=== PATIENT | female | born 1990 | race Caucasian/White ===

== ENCOUNTER 2016-07-02 09:57 | Emergency (ER) | payer MEDICAID ==
[2016-07-02 10:27] VITALS: BP 103/68
[2016-07-02] MEDS ORDERED: Sodium Chloride 0.9% 10 ML Syringe FLUSH PRN (10:36)
[2016-07-02] MEDS ORDERED: Sodium Chloride 0.9% 1,000 ML IV ONE (10:36)
--- NOTE | 2016-07-02 10:41 | EDM.PDOC ---
<Darline Gaines - Last Filed: 07/02/16 11:27> ED HISTORY OF PRESENT ILLNESS - General Chief Complaint: Respiratory Problem Stated Complaint: UPPER RESPIRATORY Time Seen by Provider: 07/02/16 10:33 Source of Information: Reports: Patient History Limitations: Reports: No limitations - History of Present Illness INITIAL COMMENTS - FREE TEXT/NARRATIVE: Patient presents to the ER with c/o cough and chest congestion beginning about 4 days ago. She states she is coughing up green sputum. She denies fever, chills , sob, n/v/d. She admits to feeling weak and tired out. Symptom Onset Date: 06/28/16 Timing/Duration: Reports: Getting worse Severity: moderate Location, General: Reports: chest Quality: Reports: Dull Improves with: Reports: None Worsens with: Reports: None - Related Data Allergies/ADRs: Allergies Allergy/AdvReac Type Severity Reaction Status Date / Time amoxicillin Allergy Diarrhea Verified 02/05/16 09:59 Home Meds: Home Meds . 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: Musculoskeletal History: Reports: None Neurological History: Reports: None Psychiatric History: Reports: None Endocrine/Metabolic History: Reports: None Hematologic History: Reports: None Immunologic History: Reports: None Oncologic (Cancer) History: Reports: None Dermatologic History: Reports: None - Past Surgical History Female Surgical History: Reports: Tubal ligation Social & Family History - Family History Family Medical History: Noncontributory - Tobacco Use Smoking Status *Q: Current Every Day Smoker Years of Tobacco use: 10 Packs/Tins Daily: 0.5 Used Tobacco, but Quit: No Second Hand Smoke Exposure: Yes - Caffeine Use Caffeine Use: Reports: Coffee, Soda - Alcohol Use Days Per Week of Alcohol Use: 0 Number of Drinks Per Day: 2 Total Drinks Per Week: 0 - Recreational Drug Use Recreational Drug Use: No - Sexual History Sexual History: Reports: Sexually active - Living Situation & Occupation Living situation: Reports: Occupation: employed ED ROS GENERAL - Review of Systems Review Of Systems: ROS reveals no pertinent complaints other than HPI. ED EXAM, GENERAL - Physical Exam Exam: See Below Exam Limited By: No limitations General Appearance: alert, WD/WN, no apparent distress Eye Exam: bilateral eye: normal inspection Ears: normal external exam, normal canal, hearing grossly normal, normal TMs Ear Exam: bilateral ear: auricle normal, canal normal, TM normal Nose: normal inspection, normal mucosa, no blood Throat/Mouth: Normal inspection, Normal lips, Normal teeth, Normal gums, Other ( oropharnyx erythematous without exudate) Head: atraumatic, normocephalic Neck: normal inspection, supple, non-tender, full range of motion Respiratory/Chest: no respiratory distress, lungs clear, normal breath sounds, no accessory muscle use. No: chest non-tender Cardiovascular: normal peripheral pulses, regular rate, rhythm, no edema, no gallop, no JVD, no murmur, no rub Peripheral Pulses: 2+: radial (L), radial (R) GI/Abdominal: normal bowel sounds, soft, non tender, no organomegaly, no distention, no abnormal bruit, no mass (Female) Exam: Deferred Rectal (Female) Exam: Deferred Back Exam: normal inspection, full range of motion, NT Extremities: normal inspection, normal range of motion, non-tender, normal capillary refill, no pedal edema Neurological: alert, oriented, CN II-XII intact, normal cognition, normal gait, normal reflexes, no motor/sensory deficits Psychiatric: normal affect, normal mood Skin Exam: Warm, Dry, Intact, Normal color, No rash Lymphatic: no adenopathy Course - Vital Signs Last Recorded V/S: Last Vital Signs Temp 37.7 C 07/02/16 10:03 Pulse 111 H 07/02/16 10:03 Resp 16 07/02/16 10:03 BP 103/68 07/02/16 10:03 Pulse Ox 99 07/02/16 10:03 - Orders/Labs/Meds Orders: Active Orders 24 hr Category Date Time Status Peripheral IV Care [RC] . DIRECTED Care 07/02/16 10:36 Active CULTURE STREP A CONFIRMATION [RM] Stat Lab 07/02/16 10:10 Results HCG QUALITATIVE,URINE [URCHEM] Stat Lab 07/02/16 10:36 Uncollected STREP SCRN A RAPID W CULT CONF [RM] Stat Lab 07/02/16 10:10 Results UA W/MICROSCOPIC [URIN] Stat Lab 07/02/16 10:36 Uncollected Sodium Chloride 0.9% [Normal Saline] 1,000 ml Med 07/02/16 10:36 Active IV .BOLUS Sodium Chloride 0.9% [Saline Flush] Med 07/02/16 10:36 Active 10 ml FLUSH ASDIRECTED PRN Peripheral IV Insertion Adult [OM.PC] Stat Oth 07/02/16 10:36 Ordered Medication Orders Sodium Chloride (Normal Saline) 1,000 mls @ 999 mls/hr IV .BOLUS ONE Stop: 07/02/16 11:36 Last Admin: 07/02/16 11:05 Dose: 999 mls/hr Sodium Chloride (Saline Flush) 10 ml FLUSH ASDIRECTED PRN PRN Reason: Keep Vein Open Last Admin: 07/02/16 11:02 Dose: 10 ml Labs: Laboratory Tests 07/02/16 07/02/16 Range/Units 10:45 10:45 WBC 6.5 (5.0-10.0) 10^3/uL RBC 4.76 (4.2-5.4) 10^6/uL Hgb 15.0 (12.0-16.0) g/dL Hct 43.8 (37.0-47.0) % MCV 92.0 (80-100) fL MCH 31.5 (27.0-34.0) pg MCHC 34.2 (33.0-35.0) g/dL Plt Count 221 (150-450) 10^3/uL Neut % (Auto) 67.4 (42.2-75.2) % Lymph % (Auto) 18.6 L (20.5-50.1) % R[place]y % (Auto) 11.0 H (2-8) % Eos % (Auto) 2.5 (1.0-3.0) % Baso % (Auto) 0.5 (0.0-1.0) % Sodium 135 (135-145) mmol/L Potassium 3.9 (3.6-5.0) mmol/L Chloride 104 (101-111) mmol/L Carbon Dioxide 26.0 (21.0-31.0) mmol/L Anion Gap 8.9 BUN 10 (7-18) mg/dL Creatinine 0.8 (0.6-1.3) mg/dL Est Cr Clr Drug Dosing TNP Estimated GFR (MDRD) > 60 BUN/Creatinine Ratio 12.50 Glucose 69 L (74-105) mg/dL Calcium 8.9 (8.4-10.2) mg/dl Total Bilirubin 0.3 (0.2-1.0) mg/dL AST 47 H (10-42) IU/L ALT 45 (10-60) IU/L Alkaline Phosphatase 33 L (42-121) IU/L Total Protein 7.6 (6.7-8.2) g/dl Albumin 4.4 (3.2-5.5) g/dl Globulin 3.2 Albumin/Globulin Ratio 1.38 Meds: Medications Generic Name Dose Route Start Last Admin Trade Name Freq PRN Reason Stop Dose Admin Sodium Chloride 1,000 mls @ 999 mls/hr 07/02/16 10:36 07/02/16 11:05 Normal Saline IV 07/02/16 11:36 999 mls/hr .BOLUS ONE Administration Sodium Chloride 10 ml 07/02/16 10:36 07/02/16 11:02 Saline Flush FLUSH 10 ml ASDIRECTED PRN Administration Keep Vein Open - Radiology Interpretation Free Text/Narrative:: CXR: Bronchitis. No lobar pneumonia. See Rad report. Departure - Departure Time of Disposition: 11:18 Disposition: Home, Self-Care 01 Preliminary Cause of *Q: sepsis & multi system organ failure Condition: good Clinical Impression: Upper respiratory infection Qualifiers: URI type: unspecified viral URI Qualified Code(s): J06.9 - Acute upper respiratory infection, unspecified Acute bronchitis Qualifiers: Bronchitis organism: unspecified organism Qualified Code(s): J20.9 - Acute bronchitis, unspecified Instructions: Acute Bronchitis, [id number], Upper Respiratory Infection, Adult, [id number]-[id number] Forms: ED Department Discharge Additional Instructions: Prednisone 40mg orally daily with meals for 5 days Tessalon Perles 100mg, 1-2 caps orally every 8 hours as needed for cough. Follow up with Primary care provider next week. - My Orders Last 24 Hours: My Active Orders 07/02/16 10:10 CULTURE STREP A CONFIRMATION [] Stat STREP SCRN A RAPID W CULT CONF [RM] Stat - Assessment/Plan Last 24 Hours: My Active Orders 07/02/16 10:10 CULTURE STREP A CONFIRMATION [RM] Stat STREP SCRN A RAPID W CULT CONF [RM] Stat <Luis Manuel Swanson - Last Filed: 07/02/16 11:33> Course - Re-Assessments/Exams Free Text/Narrative Re-Assessment/Exam: 07/02/16 11:33 FOR THIS ENCOUNTER THE PATIENT WAS SEEN IN CONJUNCTION WITH [facility] STUDENT DARLINE GAINES. ALL PATIENT CARE AND/OR PROCEDURE(S), DIAGNOSTIC ORDERS, MEDICATION(S) AND TREATMENT ORDERS, DISPOSITION ORDERS/PLANNING, AND DISCHARGE/FOLLOW UP INSTRUCTIONS WERE UNDER MY DIRECT SUPERVISION. wanda
[2016-07-02 11:11] LABS: CHLORIDE,CL 104 mmol/L (101-111); SODIUM,NA 135 mmol/L (135-145)
--- NOTE | 2016-07-02 11:21 | CR ---
Clinical history: 26-year-old female cough. Interpretation: Coarse accentuation of the central lung markings with mild air trapping typical of reactive airway disease (bronchitis). Normal cardiac silhouette and bony thorax. No alveolar edema or dependent effusion. No lung mass, hilar lymphadenopathy or focal lobar pneumonia. No atelectasis/collapse. No pneumothorax. CONCLUSION: Bronchitis. No lobar pneumonia.
== END 2016-07-02 12:12 | disposition home or self-care (01) ==
LOC: DL.ED 09:57
DX: J06.9 Acute upper respiratory infection, unspecified (principal); J20.9 Acute bronchitis, unspecified; F17.210 Nicotine dependence, cigarettes, uncomplicated; Z88.1 Allergy status to other antibiotic agents
CPT/HCPCS: 36415; 71020; 80053; 85025; 87081; 87430; 87804; 96360; 99283; J7030; J7050

== ENCOUNTER 2017-11-06 17:23 | Emergency (ER) | payer MEDICAID ==
[2017-11-06 18:01] VITALS: BP 126/89
--- NOTE | 2017-11-06 18:01 | EDM.PDOC ---
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 Pt admits to being "moderately intoxicated". She denies head or neck injury. Tetanus vaccine is up to date per pt. Onset: Today Duration: Constant Location: Reports: Lower Extremity, Left Quality: Reports: Ache Severity: Moderate Improves with: Reports: Immobilization, Rest Worsens with: Reports: Movement Associated Symptoms: Reports: No Other Symptoms Left Lower Leg Pain Score (Numeric/FACES): 8 - Related Data Allergies Allergy/AdvReac Type Severity Reaction Status Date / Time amoxicillin Allergy Diarrhea Verified 11/06/17 18:02 Home Meds: Home Meds . 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: Musculoskeletal History: Reports: None Neurological History: Reports: None Psychiatric History: Reports: None Endocrine/Metabolic History: Reports: None Hematologic History: Reports: None Immunologic History: Reports: None Oncologic (Cancer) History: Reports: None Dermatologic History: Reports: None - Past Surgical History Female Surgical History: Reports: Tubal Ligation Social & Family History - Family History Family Medical History: Noncontributory - Caffeine Use Caffeine Use: Reports: Coffee, Soda - Sexual History Sexual History: Reports: Sexually Active - Living Situation & Occupation Living situation: Reports: Occupation: Employed Review of Systems - Review of Systems Review Of Systems: ROS reveals no pertinent complaints other than HPI. ED EXAM, GENERAL - Physical Exam Exam: See Below Exam Limited By: No Limitations General Appearance: Alert, WD/WN, No Apparent Distress Nose: Normal Inspection Throat/Mouth: Normal Voice, No Airway Compromise Head: Atraumatic, Normocephalic Neck: Normal Inspection, Supple, Non-Tender, Full Range of Motion Respiratory/Chest: No Respiratory Distress, Lungs Clear, Normal Breath Sounds, No Accessory Muscle Use, Chest Non-Tender Cardiovascular: Normal Peripheral Pulses, Regular Rate, Rhythm Back Exam: Normal Inspection, Full Range of Motion, NT Extremities: Normal Range of Motion, Normal Capillary Refill. No: Joint Swelling Neurological: Alert, Oriented, No Motor/Sensory Deficits Psychiatric: Normal Affect, Normal Mood Skin Exam: Wound/Incision (left anterior prox. tibial area with soft tissue swelling/hematoma and superficial abrasion, no FB) Course - Vital Signs Last Recorded V/S: Last Vital Signs Temp 36.8 C 11/06/17 18:00 Pulse 103 H 11/06/17 18:00 Resp 22 H 11/06/17 18:00 BP 126/89 11/06/17 18:00 Pulse Ox 98 11/06/17 18:00 - Orders/Labs/Meds Orders: Active Orders 24 hr Category Date Time Status Tibia Fibula Lt [CR] Urgent Exams 11/06/17 18:08 Taken Bacitracin [Bacitracin Oint 1 GM] Med 11/06/17 18:29 Once 1 dose TOP ONETIME ONE - Radiology Interpretation Free Text/Narrative:: X-ray left Tib/Fib: no fractures, see Rad. report. - Re-Assessments/Exams Free Text/Narrative Re-Assessment/Exam: 11/06/17 18:34 Wound cleansed and dressed by RN. Departure - Departure Time of Disposition: 18:34 Disposition: Home, Self-Care 01 Condition: Good Clinical Impression: Abrasion, left lower leg, initial encounter Traumatic hematoma of left lower leg Qualifiers: Encounter type: initial encounter Qualified Code(s): S80.12XA - Contusion of left lower leg, initial encounter - Discharge Information Instructions: Abrasion, Hematoma, [id number] Forms: ED Department Discharge Additional Instructions: Rest, ice packs, and elevate left leg. Follow up in clinic if not improving as expected. - My Orders Last 24 Hours: My Active Orders 11/06/17 18:08 Tibia Fibula Lt [CR] Urgent 11/06/17 18:29 Bacitracin [Bacitracin Oint 1 GM] 1 dose TOP ONETIME ONE - Assessment/Plan Last 24 Hours: My Active Orders 11/06/17 18:08 Tibia Fibula Lt [CR] Urgent 11/06/17 18:29 Bacitracin [Bacitracin Oint 1 GM] 1 dose TOP ONETIME ONE
[2017-11-06] MEDS ORDERED: Bacitracin Oint 1 GM U/D Packet TOP ONE (18:29)
== END 2017-11-06 18:35 | disposition home or self-care (01) ==
LOC: DL.ED 17:23
DX: S80.12XA Contusion of left lower leg, initial encounter (principal); Z88.1 Allergy status to other antibiotic agents; W19.XXXA Unspecified fall, initial encounter; Y92.828 Other wilderness area as the place of occurrence of the external cause
CPT/HCPCS: 73590-LT; 99284